=== PATIENT | female | born 1960 | race Caucasian/White ===

== ENCOUNTER 2024-05-15 15:22 | Emergency (ER) | payer MEDICARE ==
[~2024-05-15] VITALS: Ht 170.2 cm; Wt 79.0 kg
[2024-05-15 15:23] VITALS: O2SAT 100
[2024-05-15] MEDS: LORAZEPAM 0.5MG TABLET PO ONE (16:26)
[2024-05-15] MEDS: ZIPRASIDONE HCL 20MG CAPSULE PO ONE (16:26)
[2024-05-15 16:53] LABS: *AMPHETAMINES SCREEN URINE NEGATIVE (NEGATIVE); *BARBITURATES SCREEN URINE NEGATIVE (NEGATIVE); *BENZODIAZEPINES SCREEN URINE PRESUMPTIVE POSITIVE (NEGATIVE); *COCAINE SCREEN URINE NEGATIVE (NEGATIVE); CANNABINOID URINE SCREEN NEGATIVE (NEGATIVE); ECSTASY MDMA SCREEN URINE NEGATIVE (NEGATIVE); METHADONE URINE SCREEN NEGATIVE (NEGATIVE); OPIATES URINE SCREEN NEGATIVE (NEGATIVE); PHENCYCLIDINE URINE SCREEN NEGATIVE (NEGATIVE)
[2024-05-15] MEDS: LORAZEPAM 2MG/ML INJ IM ONE (16:57)
[2024-05-15] MEDS: ZIPRASIDONE MESYLATE 20MG/VIAL IM ONE (16:57)
[2024-05-15 17:01] LABS: BASOPHILS % 0.4 % (0.0-2.0); EOSINOPHILS % 2.3 % (0.0-5.0); HEMATOCRIT. 44.3 % (36.0-48.0); HEMOGLOBIN. 14.7 g/dL (12.0-16.0); LYMPHOCYTES % 28.6 % (20.0-50.0); MEAN CORPUSCULAR HEMOGLOBIN 29.2 pg (28.0-32.0); MEAN CORPUSCULAR HGB CONC 33.2 g/dL (31.0-37.0); MEAN CORPUSCULAR VOLUME 87.9 fL (81.0-99.0); MEAN PLATELET VOLUME 8.6 fl (7.4-10.4); MONOCYTES % 11.5 % (2.0-8.0); NEUTROPHILS % 57.2 % (40.0-76.0); PLATELET 221 x1000/uL (130-400); RED BLOOD CELL COUNT 5.04 mill/uL (4.2-5.4); WHITE BLOOD COUNT 8.6 x1000/uL (4.5-11.0)
[2024-05-15 17:20] LABS: CHLORIDE 107 mEq/L (98-107); POTASSIUM 3.7 mEq/L (3.5-5.1); SODIUM 140 mEq/L (136-145)
[2024-05-15 17:21] LABS: CARBON DIOXIDE 26 mEq/L (21-32)
[2024-05-15 17:22] LABS: CALCIUM 9.9 mg/dL (8.7-10.4)
[2024-05-15 17:26] LABS: CREATININE 0.8 mg/dL (0.6-1.0); GLUCOSE 94 mg/dL (70-105)
[2024-05-15 17:27] LABS: UREA NITROGEN BLOOD 14 mg/dL (9-23)
[2024-05-15 17:28] LABS: ALANINE AMINOTRANSFERASE 18 IU/L (10-49); ALBUMIN 4.5 g/dL (3.2-4.8); ASPARTATE AMINOTRANSFERASE 18 IU/L (<34)
[2024-05-15 17:29] LABS: BILIRUBIN TOTAL 0.6 mg/dL (0.1-1.0); PROTEIN TOTAL 7.1 g/dL (6.0-8.3)
[2024-05-16 03:13] VITALS: BP 136/80; PULSE 81; RESP 17; TEMP 37.05852; O2SAT 100
== END 2024-05-16 03:15 | disposition home or self-care (01) ==
LOC: ER 15:22
DX: F23 Brief psychotic disorder (principal); F43.10 Post-traumatic stress disorder, unspecified; E03.9 Hypothyroidism, unspecified
CPT/HCPCS: 99284; 80053; 80305; 85025; 36415; 96372; J2060; J3486